=== PATIENT | male | born 1995 | race Two or more races ===

== ENCOUNTER 2023-01-15 17:12 | Emergency (ER) | payer SELFPAY ==
[~2023-01-15] VITALS: Ht 177.8 cm; Wt 81.8 kg
[2023-01-15 17:21] VITALS: BP 128/83; PULSE 88; RESP 18; TEMP 98
[2023-01-15] MEDS ORDERED: ACETAMINOPHEN 325 MG TABLET PO ONE (19:30)
[2023-01-15] MEDS ORDERED: KETOROLAC TROMETHAMINE 30 MG/ML VIAL IM ONE (19:30)
[2023-01-15] MEDS ORDERED: LIDOCAINE 5% TRANSDERMAL PATCH TD ONE (19:30)
[2023-01-15] MEDS ORDERED: LIDO1ADH83 TP (20:22)
[2023-01-15] MEDS ORDERED: CYCL-448 PO (20:22)
[2023-01-15] MEDS ORDERED: IBUP-1492 PO (20:22)
== END 2023-01-15 20:35 | disposition home or self-care (01) ==
LOC: EMS 17:13
DX: M54.50 Low back pain, unspecified (principal); F12.90 Cannabis use, unspecified, uncomplicated; V49.9XXA Car occupant (driver) (passenger) injured in unspecified traffic accident, initial encounter; Y93.89 Activity, other specified; Y92.89 Other specified places as the place of occurrence of the external cause; Y99.8 Other external cause status
CPT/HCPCS: 99283; 96372; J1885